=== PATIENT | female | born 1975 | race Two or more races ===

== ENCOUNTER 2020-03-17 13:18 | Outpatient (CLI) | payer OTHER | END 2020-03-17 23:59 | disposition home or self-care (01) | LOC: LAB 13:18 | PROVIDERS: ATTEND Specialist | DX: Z01.812 Encounter for preprocedural laboratory examination (principal); Z20.828 Contact with and (suspected) exposure to other viral communicable diseases | CPT/HCPCS: 87426; C9803; U0003 ==

== ENCOUNTER 2020-03-22 08:03 | Day surgery (SDC) | payer OTHER ==
--- NOTE | 2020-03-22 08:15 | NUR ---
MS RN NOTES PATIENT ADMITTED FOR DAY SURGERY, PATIENT ALERT ORIENTED X 3. NO ACUTE DISTRESS NOTED. VITAL SIGNS STABLE. SAFETY MEASURES IN PLACE, WILL CONTINUE TO MONITOR ACCORDINGLY
--- NOTE | 2020-03-22 08:45 | NUR ---
MS RN NOTES PATIENT TRANSPORTED TO OPERATING ROOM IN STABLE CONDITION.
[2020-03-22] MEDS ORDERED: LIDOCAINE 1% INJ 50 ML MDV IJ ONE (09:20)
[2020-03-22] MEDS ORDERED: methylPREDNISolone ACETATE 80 MG/ML VIAL ONE (09:20)
[2020-03-22] MEDS ORDERED: MIDAZOLAM HCL 2 MG/2ML VIAL ONE ×3 (09:24→09:39)
[2020-03-22] MEDS ORDERED: SUCCINYLCHOLINE CHLORIDE 20 MG/ML VIAL ONE (09:46)
[2020-03-22] MEDS ORDERED: FLUMAZENIL 0.5 MG VIAL ONE (10:46)
--- NOTE | 2020-03-22 12:00 | NUR ---
MS RN NOTES PATIENT CAME BACK FROM OPERATING ROOM, VITAL SIGNS STABLE, BP 140/81, AZ 89, RR 19, TEMP 98 O2 SATURATION 100% ON 2 LPM. REPORT GIVEN BY KIM CHINCHILLA. RIGHT SHOULDER DRESSING CLEAN DRY AND INTACT, RIGHT ARM SLING IN PLACE. NO COMPLAINT OF PAIN AT THIS TIME. PATIENT ALERT ORIENTED X 3. SAFETY MEASURES IN PLACE. CALL LIGHT WITH IN REACH. WILL CONTINUE TO MONITOR ACCORDINGLY.
--- NOTE | 2020-03-22 13:00 | NUR ---
MS RN NOTES VITAL SIGNS REMAIN STABLE, WILL CONTINUE TO MONITOR.
--- NOTE | 2020-03-22 14:00 | NUR ---
MS RN NOTES VITALS SIGNS STABLE. NO ACUTE DISTRESS NOTED. OXYGEN SATURATION WITHIN NORMAL LIMITS ON ROOM AIR.
[2020-03-22 14:56] VITALS: BP 140/81
--- NOTE | 2020-03-22 15:05 | NUR ---
MS GREY TENDER NOTES PATIENT DICHARGE HOME WITH STABLE VITAL SIGNS. NO ACUTE DISTRESS NOTED. NO COMPLAINT OF PAIN AT THIS TIME. DISCHARGE INSTRUCTIONS GIVEN TO THE PATIENT , VERBALIZED UNDERSTANDING. ALL BELONGINGS ACCOUNTED FOR. NEEDS ATTENDED. KEPT COMFORTABLE. RIGHT SHOULDER SURGICAL DRESSING CLEAN DRY AND INTACT WITH SLING IN PLACE. IV ACCESS REMOVED, NO BLEEDING NO REDNESS NO SWELLING NOTED. ASSISTED TO THE LOBBY PICKED UP VIA PRIVATE CAR ACCOMPANIED BY IN STABLE CONDITION.
== END 2020-03-22 18:00 | disposition home or self-care (01) ==
LOC: DS 08:03 → UNDOADMIN 08:04 → MEDSG1 08:04 → UNDODISIN 15:02 → DS 18:00
PROVIDERS: ATTEND Specialist
DX: M75.41 Impingement syndrome of right shoulder (principal); M65.811 Other synovitis and tenosynovitis, right shoulder
CPT/HCPCS: 29822; 84703; A4217; A4565; J0330; J1040; J1100; J2250 ×3; J2405; J2704; J3490 ×3; G0378

== ENCOUNTER 2024-08-15 10:13 | Emergency (ER) | payer OTHER ==
[~2024-08-15] VITALS: Ht 162.6 cm; Wt 52.2 kg
[2024-08-15] MEDS ORDERED: ONDANSETRON HCL/PF 4 MG/2 ML VIAL ONE (10:43)
[2024-08-15] MEDS ORDERED: MORPHINE SULFATE INJ 4 MG/ML DISP.SYRIN ONE (10:43)
[2024-08-15] MEDS: MORPHINE SULFATE INJ 2 MG/ML DISP.SYRIN IV ONE (10:57)
[2024-08-15] MEDS: ONDANSETRON HCL/PF 4 MG/2 ML VIAL IVP ONE (10:57)
[2024-08-15 11:23] LABS: BASOPHILS % (AUTO) 0.4 % (0.0-2.0); EOSINOPHILS # (AUTO) 0.1 K/uL (0.0-0.7); EOSINOPHILS % (AUTO) 1.3 % (0.0-6.0); HEMATOCRIT 46 % (33-45); HEMOGLOBIN 15.1 g/dL (11.5-14.8); LYMPHOCYTES # (AUTO) 2.5 K/uL (0.8-4.8); LYMPHOCYTES % (AUTO) 33.7 % (20.0-44.0); MEAN CORPUSCULAR HEMOGLOBIN 30 PG (26.0-33.0); MEAN CORPUSCULAR HGB CONC 33 g/dl (31.0-36.0); MEAN CORPUSCULAR VOLUME 90 fL (82-100); MONOCYTES # (AUTO) 0.5 K/uL (0.1-1.30); MONOCYTES % (AUTO) 6.7 % (2.0-12.0); NEUTROPHILS # (AUTO) 4.3 K/uL (1.8-8.9); NEUTROPHILS % (AUTO) 57.9 % (43.0-81.0); PLATELET COUNT (AUTO) 254 K/uL (150-450); RED BLOOD CELL COUNT(AUTO) 5.06 MIL/uL (4.0-5.2); RED CELL DISTRIBUTION WIDTH 13.6 % (11.5-15.0); WHITE BLOOD COUNT (AUTO) 7.4 K/uL (4.3-11.0)
[2024-08-15 11:46] LABS: CALCIUM, SERUM 9.7 mg/dL (8.5-10.1); CREATININE 0.7 mg/dL (0.6-1.3); POTASSIUM 4.1 mmol/L (3.5-5.1)
[2024-08-15 11:56] LABS: BILIRUBIN,DIRECT 0.1 mg/dL (0.0-0.2); BILIRUBIN,TOTAL 0.4 mg/dL (0.2-1.0); TOTAL PROTEIN, SERUM 8.4 g/dL (6.4-8.2)
[2024-08-15 11:58] LABS: APPEARANCE,URINE CLEAR (CLEAR); BILIRUBIN,URINE NEGATIVE (NEGATIVE); BLOOD, URINE NEGATIVE Ery/uL (NEGATIVE); COLOR,URINE YELLOW (YELLOW); KETONES,URINE NEGATIVE (NEGATIVE); LEUKOCYTE ESTERASE ,URINE NEGATIVE (NEGATIVE); NITRITE, URINE NEGATIVE (NEGATIVE); PROTEIN,URINE NEGATIVE (NEGATIVE); UGLUCOSE NEGATIVE (NEGATIVE); UROBILINOGEN,URINE 0.2 EU/dL (0.2)
[2024-08-15 11:59] LABS: PREGNANCY TEST URINE QUAL NEGATIVE (NEGATIVE)
[2024-08-15] MEDS ORDERED: CEPH500T PO (14:49)
[2024-08-15] MEDS ORDERED: CYCL10TA9 PO (14:49)
[2024-08-15] MEDS ORDERED: NAPR500T6 PO (14:49)
[2024-08-15 15:03] VITALS: BP 127/77; TEMP 98.5; O2SAT 100
== END 2024-08-15 15:04 | disposition home or self-care (01) ==
LOC: ER 10:13
DX: D25.9 Leiomyoma of uterus, unspecified (principal); R10.9 Unspecified abdominal pain
CPT/HCPCS: 99285; 74176; 96374; 96375; 85025; 80048; 83690; 80076; 84703; 81003; 36415; J2270; J2405